=== PATIENT | male | born 1950 | race Caucasian/White ===

== ENCOUNTER 2021-02-26 07:05 | Emergency (ER) | payer MEDICARE, BC ==
[2021-02-26 07:18] VITALS: BP 199/92; PULSE 55
--- NOTE | 2021-02-26 07:27 | EDM.PDOC ---
ED HPI GENERAL MEDICAL PROBLEM - General Chief Complaint: Abdominal Pain Stated Complaint: ABDOMINAL PAIN Time Seen by Provider: 02/26/21 07:19 - History of Present Illness INITIAL COMMENTS - FREE TEXT/NARRATIVE: 70-year-old male presents the emergency room with abdominal and back pain. This is fairly sudden onset around 2:00 this morning and progressively got worse he had a single episode of nausea and vomiting. The pain seems to radiate into his mid upper back. Patient has a history of coronary artery disease he is treated for hypertension. Patient states he quit smoking when he was in the third grade. He has prediabetes, is obese. 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 The patient has not had pain like this in the past and this is much different from symptoms from coronary artery disease. Abdominal Pain Score (Numeric/FACES): 7 - Related Data Allergies Allergy/AdvReac Type Severity Reaction Status Date / Time penicillin Allergy Nausea Verified 02/26/21 07:19 Home Meds: Home Meds Aspirin [Adult Low Dose Aspirin EC] 81 mg PO DAILY 05/14/14 [History] Metoprolol Succinate [Toprol XL] 25 mg PO DAILY 05/14/14 [History] Multivitamin [Multivitamins] 1 tab PO DAILY 05/14/14 [History] Nitroglycerin [Nitrostat] 0.4 mg SL ASDIRECTED PRN 05/14/14 [History] Simvastatin 40 mg PO DAILY 05/14/14 [History] Fish Oil/DHA/EPA [Fish Oil 1,200 MG] 1 tab PO DAILY 05/19/15 [History] Metaxalone [Skelaxin] 800 mg PO TID 05/19/15 [History] Olmesartan [Benicar] 20 mg PO DAILY 05/19/15 [History] Pantoprazole [ProTONIX] 40 mg PO DAILY PRN 05/19/15 [History] Potassium Gluconate 2.5 meq PO DAILY 05/19/15 [History] Cyclobenzaprine [Flexeril] 10 mg PO TID PRN #40 tablet 05/20/15 [Rx] Hydrocodone/Acetaminophen [Power 5-325] 1 - 2 tab PO Q4H PRN #40 tablet 05/20/15 [Rx] metFORMIN [Glucophage] 750 mg PO DAILY 02/26/21 [History] Past Medical History Other Cardiovascular History: 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 Denies: Chest Pain Endocrine: Reports: No Symptoms GI/Abdominal: Reports: No Symptoms : Reports: No Symptoms Musculoskeletal: Reports: Other (Back pain as described above). Denies: No Symptoms Skin: Reports: No Symptoms Neurological: Reports: No Symptoms Psychiatric: Reports: No Symptoms Hematologic/Lymphatic: Reports: No Symptoms ED EXAM, GENERAL - Physical Exam Exam: See Below Exam Limited By: No Limitations General Appearance: Alert, No Apparent Distress Head: Atraumatic, Normocephalic Neck: Normal Inspection, Supple, Non-Tender, Full Range of Motion Respiratory/Chest: No Respiratory Distress, Lungs Clear, Normal Breath Sounds Cardiovascular: Regular Rate, Rhythm, No Edema, No Murmur GI/Abdominal: Normal Bowel Sounds, Soft, Other (Patient does not make the pain any worse no palpable masses no pulsatile masses) Back Exam: Normal Inspection, Other (Patient the back does not cause any worsening of his pain certainly no trigger points or spasm identified). No: CVA Tenderness (L), CVA Tenderness (R) Extremities: Pedal Edema (Trace chronic) Neurological: Alert, Oriented, Normal Cognition #1 Interpretation EKG Date: 02/26/21 Rhythm: Other (Order Sinus bradycardia) Rate (Beats/Min): 53 [place]: LAD-Left [place] Deviation (Borderline) P-Wave: Present (First-degree AV block) QRS: Other (Inferior Q waves) ST-T: Normal QT: Normal Comparison: No Change (No significant change from April 06, 2015) EKG Interpretation Comments: Abnormal EKG Course - Vital Signs Last Recorded V/S: Last Vital Signs Temp 36.1 C 02/26/21 07:17 Pulse 55 L 02/26/21 07:17 Resp 20 02/26/21 07:17 BP 199/92 H 08/22/21 07:17 Pulse Ox 98 02/26/21 07:17 - Orders/Labs/Meds Orders: Active Orders 24 hr Category Date Time Status Sodium Chloride 0.9% [Normal Saline] 45 ml Med 02/26/21 08:00 Active IV ASDIRECTED Sodium Chloride 0.9% [Saline Flush] Med 02/26/21 07:52 Active 10 ml FLUSH ONETIME PRN niCARdipine HCl [Nicardipine HCl] 25 mg Med 02/26/21 07:45 Active Sodium Chloride 0.9% [Normal Saline] 250 ml IV TITRATE Medication Orders Nicardipine HCl 25 mg/ Sodium (Chloride) 260 mls @ 52 mls/hr IV TITRATE GARFIELD; Protocol Last Admin: 02/26/21 07:54 Dose: 5 mg/hr, 52 mls/hr Documented by: STAR Sodium Chloride (Normal Saline) 45 mls @ 40 mls/hr IV ASDIRECTED GARFIELD Last Admin: 02/26/21 08:05 Dose: 40 mls/hr Documented by: ADRIÁN Sodium Chloride (Sodium Chloride 0.9% 10 Ml Syringe) 10 ml FLUSH ONETIME PRN PRN Reason: Keep Vein Open Last Admin: 02/26/21 08:05 Dose: 10 ml Documented by: ADRIÁN Labs: Laboratory Tests 02/26/21 02/26/21 02/26/21 Range/Units 07:30 07:30 07:30 WBC 7.64 (4.23-9.07) K/mm3 RBC 4.54 L (4.63-6.08) M/mm3 Hgb 13.9 (13.7-17.5) gm/dl Hct 41.8 (40.1-51.0) % MCV 92.1 (79.0-92.2) fl MCH 30.6 (25.7-32.2) pg MCHC 33.3 (32.2-35.5) g/dl RDW Std Deviation 43.7 (35.1-43.9) fL Plt Count 159 L (163-337) K/mm3 MPV 10.8 (9.4-12.3) fl Neut % (Auto) 77.8 H (34.0-67.9) % Lymph % (Auto) 12.7 L (21.8-53.1) % Boyle % (Auto) 6.4 (5.3-12.2) % Eos % (Auto) 1.6 (0.8-7.0) Baso % (Auto) 0.5 (0.1-1.2) % Neut # (Auto) 5.94 H (1.78-5.38) K/mm3 Lymph # (Auto) 0.97 L (1.32-3.57) K/mm3 Boyle # (Auto) 0.49 (0.30-0.82) K/mm3 Eos # (Auto) 0.12 (0.04-0.54) K/mm3 Baso # (Auto) 0.04 (0.01-0.08) K/mm3 Manual Slide Review Normal smear PT 10.8 (9.7-12.0) SECONDS INR 1.01 APTT 26.5 (21.7-31.4) SECONDS Sodium 143 (136-145) mEq/L Potassium 4.3 (3.5-5.1) mEq/L Chloride 106 (98-107) mEq/L Carbon Dioxide 26 (21-32) mEq/L Anion Gap 15.3 H (5-15) BUN 18 (7-18) mg/dL Creatinine 1.2 (0.7-1.3) mg/dL Est Cr Clr Drug Dosing 53.55 mL/min Estimated GFR (MDRD) 60 (>60) mL/min BUN/Creatinine Ratio 15.0 (14-18) Glucose 157 H (70-99) mg/dL Calcium 9.8 (8.5-10.1) mg/dL Total Bilirubin 0.6 (0.2-1.0) mg/dL AST 32 (15-37) U/L ALT 58 (16-63) U/L Alkaline Phosphatase 64 (46-116) U/L Troponin I < 0.017 (0.00-0.056) ng/mL Total Protein 7.1 (6.4-8.2) g/dl Albumin 3.9 (3.4-5.0) g/dl Globulin 3.2 gm/dL Albumin/Globulin Ratio 1.2 (1-2) Lipase (73-393) U/L Urine Color (Yellow) Urine Appearance (Clear) Urine pH (5.0-8.0) Ur Specific [place] (1.005-1.030) Urine Protein (Negative) Urine Glucose (UA) (Negative) Urine Ketones (Negative) Urine Occult Blood (Negative) Urine Nitrite (Negative) Urine Bilirubin (Negative) Urine Urobilinogen (0.2-1.0) Ur Leukocyte Esterase (Negative) 02/26/21 02/26/21 Range/Units 07:30 08:35 WBC (4.23-9.07) K/mm3 RBC (4.63-6.08) M/mm3 Hgb (13.7-17.5) gm/dl Hct (40.1-51.0) % MCV (79.0-92.2) fl MCH (25.7-32.2) pg MCHC (32.2-35.5) g/dl RDW Std Deviation (35.1-43.9) fL Plt Count (163-337) K/mm3 MPV (9.4-12.3) fl Neut % (Auto) (34.0-67.9) % Lymph % (Auto) (21.8-53.1) % Boyle % (Auto) (5.3-12.2) % Eos % (Auto) (0.8-7.0) Baso % (Auto) (0.1-1.2) % Neut # (Auto) (1.78-5.38) K/mm3 Lymph # (Auto) (1.32-3.57) K/mm3 Boyle # (Auto) (0.30-0.82) K/mm3 Eos # (Auto) (0.04-0.54) K/mm3 Baso # (Auto) (0.01-0.08) K/mm3 Manual Slide Review PT (9.7-12.0) SECONDS INR APTT (21.7-31.4) SECONDS Sodium (136-145) mEq/L Potassium (3.5-5.1) mEq/L Chloride (98-107) mEq/L Carbon Dioxide (21-32) mEq/L Anion Gap (5-15) BUN (7-18) mg/dL Creatinine (0.7-1.3) mg/dL Est Cr Clr Drug Dosing mL/min Estimated GFR (MDRD) (>60) mL/min BUN/Creatinine Ratio (14-18) Glucose (70-99) mg/dL Calcium (8.5-10.1) mg/dL Total Bilirubin (0.2-1.0) mg/dL AST (15-37) U/L ALT (16-63) U/L Alkaline Phosphatase (46-116) U/L Troponin I (0.00-0.056) ng/mL Total Protein (6.4-8.2) g/dl Albumin (3.4-5.0) g/dl Globulin gm/dL Albumin/Globulin Ratio (1-2) Lipase 101 (73-393) U/L Urine Color Yellow (Yellow) Urine Appearance Clear (Clear) Urine pH 7.0 (5.0-8.0) Ur Specific [place] 1.025 (1.005-1.030) Urine Protein Negative (Negative) Urine Glucose (UA) Negative (Negative) Urine Ketones Negative (Negative) Urine Occult Blood Negative (Negative) Urine Nitrite Negative (Negative) Urine Bilirubin Negative (Negative) Urine Urobilinogen 0.2 (0.2-1.0) Ur Leukocyte Esterase Negative (Negative) Meds: Medications Generic Name Dose Route Start Last Admin Trade Name Freq PRN Reason Stop Dose Admin Nicardipine HCl 25 mg/ Sodium 260 mls @ 52 mls/hr 02/26/21 07:45 02/26/21 07:54 Chloride IV 5 mg/hr TITRATE GARFIELD 52 mls/hr Administration Protocol 5 MG/HR Sodium Chloride 45 mls @ 40 mls/hr 02/26/21 08:00 02/26/21 08:05 Normal Saline IV 40 mls/hr ASDIRECTED GARFIELD Administration Sodium Chloride 10 ml 02/26/21 07:52 02/26/21 08:05 Sodium Chloride 0.9% 10 Ml Syringe FLUSH 10 ml ONETIME PRN Administration Keep Vein Open Discontinued Medications Generic Name Dose Route Start Last Admin Trade Name Freq PRN Reason Stop Dose Admin Iopamidol 100 ml 02/26/21 07:52 02/26/21 08:05 Iopamidol 755 Mg/Ml 100 Ml Bottle IVPUSH 02/26/21 07:53 100 ml ONETIME ONE Administration - Re-Assessments/Exams Free Text/Narrative Re-Assessment/Exam: 02/26/21 08:06 Labs ordered with a differential including dissection I will get aggressive on lowering his blood pressure and checking CTA. 02/26/21 10:00 Patient started to feel better about the time his blood pressure dropped. CTA the aorta chest abdomen is unremarkable no other acute abnormalities identified there is a nodule in his left lung 1.6 within the subpleural location of the left lung base it is recommended that you either have a biopsy or follow-up noncontrast chest CT in 6 months. Prior sternotomy and previous surgery was noted few small calcified gallstones noted in the gallbladder he does have some discomfort in the right upper quadrant we will check an outpatient gallbladder ultrasound. Overall the patient is feeling much better he is wondering if he just pulled a muscle as he did quite a bit yard work yesterday Departure - Departure Time of Disposition: 10:06 Disposition: Home, Self-Care 01 Clinical Impression: Abdominal pain - Discharge Information Instructions: Abdominal Pain, Adult Referrals: Juancho Hunter MD [Primary Care Provider] - Forms: ED Department Discharge Additional Instructions: Return to the emergency room with any questions problems or worsening symptoms. Use Tylenol as needed for discomfort. Go straight home and take your blood pressure medications. You should be contacted by radiology department for your gallbladder ultrasound I would imagine they can get this done in the next few days. Follow-up with your regular physician the middle to end of this next week after the gallbladder ultrasound has been done. Discuss the results of the ultrasound. Also discuss the nodule noted at the base of the left lung that needs follow-up CT and/or biopsy. Sepsis Event Note (ED) - Focused Exam Vital Signs: Vital Signs Temp Pulse Resp BP Pulse Ox 02/26/21 07:17 36.1 C 55 L 20 199/92 H 98 - My Orders Last 24 Hours: My Active Orders 02/26/21 07:45 niCARdipine HCl [Nicardipine HCl] 25 mg Sodium Chloride 0.9% [Normal Saline] 250 ml IV TITRATE 02/26/21 07:52 Sodium Chloride 0.9% [Saline Flush] 10 ml FLUSH ONETIME PRN 02/26/21 08:00 Sodium Chloride 0.9% [Normal Saline] 45 ml IV ASDIRECTED - Assessment/Plan Last 24 Hours: My Active Orders 02/26/21 07:45 niCARdipine HCl [Nicardipine HCl] 25 mg Sodium Chloride 0.9% [Normal Saline] 250 ml IV TITRATE 02/26/21 07:52 Sodium Chloride 0.9% [Saline Flush] 10 ml FLUSH ONETIME PRN 02/26/21 08:00 Sodium Chloride 0.9% [Normal Saline] 45 ml IV ASDIRECTED
[2021-02-26] MEDS ORDERED: niCARdipine HCl 25 MG in Sodium Chloride 0.9% 250 ML IV SCH (07:45)
[2021-02-26] MEDS ORDERED: Sodium Chloride 0.9% 10 ML Syringe FLUSH PRN (07:52)
[2021-02-26] MEDS ORDERED: Iopamidol 755 Mg/ML 100 ML Bottle IVPUSH ONE (07:52)
[2021-02-26] MEDS ORDERED: Sodium Chloride 0.9% 45 ML IV SCH (08:00)
--- NOTE | 2021-02-26 08:25 | CT ---
CT chest Technique: Multiple axial sections through the chest were obtained. Intravenous contrast was utilized in the arterial phase. Reconstructed coronal and sagittal images were obtained. Findings: Thoracic aorta shows mild atherosclerotic change. No dissection is seen. No aneurysm is noted. Prior sternotomy is seen with surgical clips being seen. Mediastinum and hilar regions show no adenopathy or mass. No pericardial thickening is seen. Lung window settings were reviewed which show a subpleural nodule within the left lung base measuring 1.6 cm. Lungs otherwise appear clear without acute parenchymal change. Bone window settings were reviewed. Scattered disc space narrowing and endplate spurring is noted within the spine. No acute osseous abnormality is appreciated. Impression: 1. 1.6 cm nodule within a subpleural location within the left lung base. This is nonspecific and difficult to exclude neoplasm. 6 month follow-up noncontrast chest CT is recommended or biopsy. 2. Prior sternotomy and previous surgery. 3. Thoracic aorta shows mild atherosclerotic change with no aneurysm or dissection. Note: Abdominal imaging will be dictated on separate study. Diagnostic code #9
--- NOTE | 2021-02-26 08:31 | CT ---
CT abdomen Technique: Multiple axial sections were obtained from above the dome of the diaphragm inferiorly to the mid pelvis. Intravenous contrast was utilized in the arterial phase. Reconstructed coronal and sagittal images were obtained. Findings: Thoracic aorta shows atherosclerotic change with no aneurysm or dissection. Common iliac arteries show no aneurysm. Small hiatal hernia is noted. Liver contains no discrete abnormality. Small calcified gallstones are seen within the gallbladder. Spleen size is normal. Adrenal glands show no nodule. Pancreas appears within normal limits. Both kidneys show symmetric contrast enhancement without hydronephrosis or mass. No retroperitoneal adenopathy or mesenteric abnormalities are seen. Appendix is seen which is normal in size. Bone window settings were reviewed which show mild degenerative change scattered within the spine. Vacuum phenomena is partially seen within the sacroiliac joints with mild anterior spurring. No acute osseous finding is seen. Impression: 1. Abdominal aorta shows atherosclerotic change without aneurysm. No dissection is seen. 2. Small calcified gallstones. 3. Other findings as described above which appear nonacute. Diagnostic code #2
== END 2021-02-26 11:00 | disposition home or self-care (01) ==
LOC: JD.ED 07:05
DX: R10.9 Unspecified abdominal pain (principal); R00.1 Bradycardia, unspecified; I25.10 Atherosclerotic heart disease of native coronary artery without angina pectoris; I44.0 Atrioventricular block, first degree; E66.9 Obesity, unspecified; Z68.38 Body mass index [BMI] 38.0-38.9, adult; Z87.891 Personal history of nicotine dependence; Z88.0 Allergy status to penicillin; Z79.82 Long term (current) use of aspirin; Z79.899 Other long term (current) drug therapy
CPT/HCPCS: 36415; 71275; 74175; 80053; 81003; 83690; 84484; 85025; 85610; 85730; 93005; 96365; 96366; 99284; J7050; Q9967; 93010; 99283

== ENCOUNTER 2024-06-11 06:30 | Day surgery (SDC) | payer MEDICARE, BC ==
[~2024-06-11 06:30] MED LIST: Lidocaine 1% 5 ML VIAL ONE; Midazolam 1 MG/ML 2 ML SDV ONE; Propofol 200 MG/20 ML SDV ONE; Sodium Chloride 0.9% 10 ML Syringe FLUSH PRN; Sodium Chloride 0.9% 10 ML Syringe FLUSH SCH; fentaNYL 100 MCG/2 ML SDV ONE
[2024-06-11] MEDS: Lactated Ringers 1,000 ML IV SCH (06:50)
[2024-06-11] MEDS ORDERED: HYDROmorphone 0.5 MG/0.5 ML Syringe IVPUSH PRN (07:13)
[2024-06-11] MEDS ORDERED: fentaNYL 100 MCG/2 ML SDV IVPUSH PRN (07:13)
[2024-06-11] MEDS ORDERED: Ondansetron 4 MG/2 ML SDV IVPUSH PRN (07:13)
[2024-06-11] MEDS ORDERED: droPERidol 5 MG/2 ML SDV IVPUSH PRN (07:13)
[2024-06-11] MEDS ORDERED: Lactated Ringers 1,000 ML ONE ×3 (07:55→09:13)
[2024-06-11] MEDS ORDERED: ePHEDrine 50 MG/ML SDV ONE (07:58)
[2024-06-11] MEDS: Clindamycin Phosphate in D5W 900 MG in Premix Bag 1 BAG IV ONE (08:09)
[2024-06-11] MEDS: oxyCODONE ER 10 MG TAB.ER PO ONE (08:10)
[2024-06-11] MEDS: Pregabalin 25 MG Cap PO ONE (08:10)
[2024-06-11] MEDS: Acetaminophen 325 MG Tab PO ONE (08:10)
[2024-06-11] MEDS ORDERED: Dexamethasone 4 MG/ML 5 ML MDV ONE (08:32)
[2024-06-11] MEDS ORDERED: Ropivacaine 0.5% 5 MG/ML 30 ML SDV ONE (09:02)
[2024-06-11] MEDS ORDERED: dexmedeTOMIDine HCl 200 MCG/2 ML SDV ONE (09:03)
[2024-06-11] MEDS ORDERED: Ondansetron 4 MG/2 ML SDV ONE (09:05)
[2024-06-11] MEDS: Morphine 8 MG, EPINEPHrine 0.3 MG, Cefuroxime 750 MG, Ketorolac 30 MG, Sodium Chloride ... PRN (09:06)
[2024-06-11] MEDS: Tranexamic Acid 1,000 MG/10 ML Vial ONE (09:11)
[2024-06-11] MEDS: VANCOmycin 1 GM SDV ONE (09:11)
[2024-06-11] MEDS ORDERED: Ketorolac 15 MG/ML SDV ONE (09:20)
[2024-06-11 14:56] VITALS: BP 98/65; PULSE 75
== END 2024-06-11 13:53 | disposition home or self-care (01) ==
LOC: JD.SDS 06:30
PROVIDERS: ATTEND Orthopaedic Surgery
DX: M17.31 Unilateral post-traumatic osteoarthritis, right knee (principal); I10 Essential (primary) hypertension; I25.10 Atherosclerotic heart disease of native coronary artery without angina pectoris; E78.2 Mixed hyperlipidemia; G47.33 Obstructive sleep apnea (adult) (pediatric); E66.9 Obesity, unspecified; Z68.41 Body mass index [BMI] 40.0-44.9, adult; Z87.891 Personal history of nicotine dependence; Z79.82 Long term (current) use of aspirin; Z79.899 Other long term (current) drug therapy; Z88.0 Allergy status to penicillin
CPT/HCPCS: 73560-26-RT; 73560-RT; 97116-GP; 97161-GP; A9270-GY; J0171; J0697; J0736; J1100; J1885; J2250; J2272; J2405; J2704; J2795; J3010; J3490; J7120

== ENCOUNTER 2024-06-24 23:55 | Emergency (ER) | payer MEDICARE, BC ==
[2024-06-25 00:22] VITALS: BP 135/79; PULSE 86
[2024-06-25] MEDS ORDERED: Sodium Chloride 0.9% 10 ML Syringe FLUSH PRN (01:23)
[2024-06-25 01:43] LABS: BASOPHILS ABSOLUTE AUTO 0.1 K/mm3 (0.0-0.2); BASOPHILS PERCENT AUTO 0.3 % (0.0-1.0); EOSINOPHILS ABSOLUTE AUTO 0.2 K/mm3 (0.0-0.4); EOSINOPHILS PERCENT AUTO 0.8 % (0.0-6.0); HEMATOCRIT 30.2 % (42.0-52.0); HEMOGLOBIN 10.3 gm/dl (14.0-18.0); IMMATURE GRAN ABSOLUTE AUTO 0.25 K/mm3 (0.00-0.05); IMMATURE GRAN PERCENT AUTO 1.4 % (0.0-0.4); LYMPHOCYTES ABSOLUTE AUTO 0.9 K/mm3 (1.0-4.8); LYMPHOCYTES PERCENT AUTO 5.1 % (24.0-44.0); MEAN CORPUSCULAR HEMOGLOBIN 29.6 pg (28.0-32.0); MEAN CORPUSCULAR HGB CONC 34.1 g/dl (32.0-36.0); MEAN CORPUSCULAR VOLUME 86.8 fl (83.0-99.0); MONOCYTES ABSOLUTE AUTO 0.8 K/mm3 (0.0-0.8); MONOCYTES PERCENT AUTO 4.7 % (0.0-8.0); NEUTROPHILS ABSOLUTE AUTO 15.5 K/mm3 (1.8-7.7); NEUTROPHILS PERCENT AUTO 87.7 % (41.0-71.0); PLATELET COUNT,PLT 366 K/mm3 (150-400); RED BLOOD CELL COUNT 3.48 M/mm3 (4.52-5.90); WHITE BLOOD CELL COUNT,WBC 17.73 K/mm3 (3.9-11.3)
[2024-06-25 02:14] LABS: A/G RATIO 0.8 (1-2); ANION GAP 12.4 (5-15); BILIRUBIN TOTAL 0.8 mg/dL (0.2-1.0); BUN/CREATININE RATIO 26.4 (14-18); CALCIUM 8.8 mg/dL (8.5-10.1); CREATININE 1.1 mg/dL (0.7-1.3); EST CRCL DRUG DOSING (CG) 55.92 mL/min; MAGNESIUM 1.9 mg/dL (1.8-2.4); POTASSIUM,K 4.4 mEq/L (3.5-5.1); PROTEIN TOTAL,TP 6.7 g/dl (6.4-8.2); TSH 1.835 uIU/mL (0.358-3.74)
[2024-06-25 03:41] LABS: APPEARANCE,URINE CLEAR (Clear); BILIRUBIN,URINE NEGATIVE (Negative); COLOR,URINE YELLOW (Yellow); GLUCOSE,URINE NEGATIVE (Negative); KETONES,URINE NEGATIVE (Negative); LEUKOCYTE ESTERASE,URINE NEGATIVE (Negative); NITRITE,URINE NEGATIVE (Negative); OCCULT BLOOD,URINE NEGATIVE (Negative); PH,URINE 5.5 (5.0-8.0); PROTEIN,URINE NEGATIVE (Negative); UROBILINOGEN,URINE 0.2 (0.2-1.0)
== END 2024-06-25 04:30 | disposition home or self-care (01) ==
LOC: JD.ED 23:55
DX: K59.00 Constipation, unspecified (principal); R34 Anuria and oliguria; I10 Essential (primary) hypertension; E78.00 Pure hypercholesterolemia, unspecified; K21.9 Gastro-esophageal reflux disease without esophagitis; M19.90 Unspecified osteoarthritis, unspecified site; E66.9 Obesity, unspecified; Z86.16 Personal history of COVID-19; Z88.0 Allergy status to penicillin; Z79.82 Long term (current) use of aspirin; Z79.84 Long term (current) use of oral hypoglycemic drugs; Z79.899 Other long term (current) drug therapy; Z68.39 Body mass index [BMI] 39.0-39.9, adult
CPT/HCPCS: 36415; 51798; 80053; 81003; 83735; 84443; 85025; 99283; 99283-25

== ENCOUNTER 2024-08-13 06:00 | Day surgery (SDC) | payer MEDICARE, BC ==
[~2024-08-13 06:00] MED LIST changes: -Lidocaine 1% 5 ML VIAL ONE; -Midazolam 1 MG/ML 2 ML SDV ONE; -Propofol 200 MG/20 ML SDV ONE; -fentaNYL 100 MCG/2 ML SDV ONE
[2024-08-13] MEDS: Lactated Ringers 1,000 ML IV SCH (06:10)
[2024-08-13] MEDS ORDERED: Propofol 200 MG/20 ML SDV ONE (06:15)
[2024-08-13] MEDS ORDERED: Lidocaine 2% 5 ML SDV ONE (06:15)
[2024-08-13] MEDS ORDERED: Ropivacaine 0.5% 5 MG/ML 30 ML SDV ONE (06:15)
[2024-08-13] MEDS ORDERED: EPINEPHrine 1 MG/ML SDV ONE (06:17)
[2024-08-13] MEDS ORDERED: Midazolam 1 MG/ML 2 ML SDV ONE (06:19)
[2024-08-13] MEDS: oxyCODONE 5 MG Tab PO ONE (08:00)
[2024-08-13 08:24] VITALS: BP 118/73; PULSE 71
== END 2024-08-13 08:40 | disposition home or self-care (01) ==
LOC: JD.SDS 06:00
PROVIDERS: ATTEND Orthopaedic Surgery
DX: T84.82XD Fibrosis due to internal orthopedic prosthetic devices, implants and grafts, subsequent encounter (principal); M24.661 Ankylosis, right knee; I10 Essential (primary) hypertension; G62.89 Other specified polyneuropathies; I25.10 Atherosclerotic heart disease of native coronary artery without angina pectoris; E78.2 Mixed hyperlipidemia; G47.33 Obstructive sleep apnea (adult) (pediatric); Z87.891 Personal history of nicotine dependence; Z95.1 Presence of aortocoronary bypass graft; Z79.82 Long term (current) use of aspirin; Z79.899 Other long term (current) drug therapy; Z88.0 Allergy status to penicillin; Y83.1 Surgical operation with implant of artificial internal device as the cause of abnormal reaction of the patient, or of later complication, without mention of misadventure at the time of the procedure
CPT/HCPCS: A9270-GY; J0171; J2250; J2704; J2795; J3490; J7120